=== PATIENT | male | born 1985 | race Two or more races ===

== ENCOUNTER 2024-11-25 12:14 | Inpatient (IN) | payer OTHER ==
[~2024-11-25] VITALS: Ht 154.9 cm; Wt 58.6 kg
[2024-11-25 13:34] LABS: PLATELET COUNT (AUTO) 428 K/uL (150-450); RED BLOOD CELL COUNT(AUTO) 4.93 MIL/uL (4.50-5.90); RED CELL DISTRIBUTION WIDTH 13.5 % (11.5-14.5); WHITE BLOOD COUNT (AUTO) 4.3 K/uL (4.5-11.0)
[2024-11-25 13:43] LABS: ALCOHOL, BLOOD (SERUM) < 3 mg/dL (0-10); CALCIUM, TOTAL 8.5 mg/dL (8.8-10.5); CREATININE 0.84 mg/dL (0.60-1.30); GLOMERULAR FILTR. RATE CALC > 60 mL/min (>60); GLUCOSE,RANDOM 88 mg/dL (70-110); SODIUM SERUM 136 mmol/L (136-145); UREA NITROGEN, BLOOD 13 mg/dL (7-18)
[2024-11-25 13:48] LABS: ASPARTATE AMINOTRANSFERASE 20 U/L (15-37); CREATINE KINASE, TOTAL ONLY 121 U/L (39-308); TOTAL PROTEIN, SERUM 7.4 g/dL (6.4-8.2)
[2024-11-25 13:49] LABS: TROPONIN I-HIGH SENSITIVITY 11 ng/L (<76)
[2024-11-25] MEDS: SODIUM CHLORIDE 0.9% 1,000 ML IV ONE (13:56)
[2024-11-25] MEDS ORDERED: ACETAMINOPHEN 325 MG TABLET PO PRN (17:45)
[2024-11-25] MEDS ORDERED: MAGNESIUM HYDROXIDE SUSPENSION 30 ML UDCUP PO PRN (17:45)
[2024-11-25] MEDS ORDERED: ZOLPIDEM TARTRATE 5 MG TABLET PO PRN (17:45)
[2024-11-25] MEDS ORDERED: BISACODYL 10 MG RECTAL RECTAL SUPPOSITORY PR PRN (17:45)
[2024-11-25] MEDS ORDERED: IPRATROPIUM BROMIDE 0.5 MG/2.5 ML NEB SOLUTION NEB PRN (17:45)
[2024-11-25] MEDS ORDERED: ONDANSETRON HCL 4 MG/2 ML VIAL IVP PRN (17:45)
[2024-11-25] MEDS ORDERED: ALBUTEROL SULFATE 2.5 MG/0.5 ML NEB SOLUTION NEB PRN (17:45)
[2024-11-25 17:46] VITALS: BP 106/74; PULSE 88; RESP 18; TEMP 97.5; O2SAT 100
[2024-11-25 19:46] VITALS: BP 96/61; PULSE 64; RESP 17; TEMP 97.7; O2SAT 99
[2024-11-25 23:26] VITALS: BP 96/63; PULSE 61; RESP 17; TEMP 97.5; O2SAT 99
[2024-11-26] MEDS: HEPARIN SODIUM,PORCINE 5,000 UNITS/ML VIAL SQ SCH (00:18)
[2024-11-26 03:30] VITALS: BP 92/72; PULSE 56; RESP 15; TEMP 98.1; O2SAT 100
[2024-11-26 06:49] LABS: PLATELET COUNT (AUTO) 397 K/uL (150-450); RED BLOOD CELL COUNT(AUTO) 4.71 MIL/uL (4.50-5.90); RED CELL DISTRIBUTION WIDTH 13.5 % (11.5-14.5); WHITE BLOOD COUNT (AUTO) 4.7 K/uL (4.5-11.0)
[2024-11-26 07:00] LABS: CALCIUM, TOTAL 8.1 mg/dL (8.8-10.5); CREATININE 0.61 mg/dL (0.60-1.30); GLOMERULAR FILTR. RATE CALC > 60 mL/min (>60); GLUCOSE,RANDOM 79 mg/dL (70-110); SODIUM SERUM 139 mmol/L (136-145); UREA NITROGEN, BLOOD 11 mg/dL (7-18)
[2024-11-26 07:19] LABS: APPEARANCE,URINE CLEAR (CLEAR); GLUCOSE, URINE (UA) NEGATIVE (NEGATIVE); LEUKOCYTE ESTERASE ,URINE NEGATIVE (NEGATIVE); NITRATE,URINE NEGATIVE (NEGATIVE); OCCULT BLOOD,URINE NEGATIVE (NEGATIVE); PH,URINE DRUG SCREEN 6.0 (5.0-8.0); SPECIFIC GRAVITIY, URINE 1.014 (1.003-1.030)
[2024-11-26 07:24] LABS: ALCOHOL, URINE DRUG SCREEN NEGATIVE (NEGATIVE); AMPHET/METH SCREEN,URINE POSITIVE (NEGATIVE); BARBITURATE SCREEN, URINE NEGATIVE (NEGATIVE); CANNABINOID SCREEN,URINE POSITIVE (NEGATIVE); COCAINE SCREEN,URINE NEGATIVE (NEGATIVE); METHADONE SCREEN, URINE NEGATIVE (NEGATIVE)
[2024-11-26 08:38] VITALS: BP 102/64; PULSE 58; RESP 18; TEMP 98.1; O2SAT 99
[2024-11-26] MEDS: PANTOPRAZOLE SODIUM 40 MG DR TABLET PO SCH (08:43)
[2024-11-26] MEDS: SODIUM CHLORIDE 0.9% 1,000 ML IV ONE (11:46)
[2024-11-26 11:55] VITALS: BP 95/60; PULSE 66; RESP 17; TEMP 98.2; O2SAT 99
[2024-11-26 14:36] VITALS: BP 104/80; PULSE 62; RESP 18; TEMP 97.5; O2SAT 100
[2024-11-26 20:40] VITALS: BP 101/68; PULSE 76; RESP 18; TEMP 98.2; O2SAT 97
[2024-11-27 05:15] VITALS: BP 98/71; PULSE 62; RESP 18; TEMP 97.5; O2SAT 98
[2024-11-27 07:39] VITALS: BP 101/72; PULSE 57; RESP 18; TEMP 97.1; O2SAT 98
[2024-11-27] MEDS ORDERED: ACET-2247 PO (10:34)
[2024-11-27] MEDS ORDERED: MAGN-169 PO (10:35)
== END 2024-11-27 11:35 | DRG 948 ==
LOC: EMS 12:17 → EDH 16:51 → 5S 18:15 → 6S 11-26 13:25 → 6N 11-26 13:55
PROVIDERS: ADMIT Hospitalist; ATTEND Hospitalist
DX: R53.1 Weakness (principal); F15.10 Other stimulant abuse, uncomplicated
CPT/HCPCS: 71045; 71250; 72192; 74150; 80048; 80076; 80307; 81003; 82550; 83735; 83880; 84484; 85025; 93005; 96360; 99285; G0480; J1644; J7030; 36415-L1; 36415-TC

== ENCOUNTER 2024-11-27 19:55 | Inpatient (IN) | payer OTHER ==
[~2024-11-27] VITALS: Ht 160 cm; Wt 63.6 kg
[~2024-11-27 19:55] MED LIST: ACET-2247 PO; MAGN-169 PO
[2024-11-27] MEDS ORDERED: MAGNESIUM HYDROXIDE SUSPENSION 30 ML UDCUP PO PRN (20:30)
[2024-11-27] MEDS ORDERED: ACETAMINOPHEN 325 MG TABLET PO PRN (20:30)
[2024-11-27] MEDS ORDERED: ONDANSETRON HCL 4 MG/2 ML VIAL IVP PRN (20:30)
[2024-11-27] MEDS ORDERED: ZOLPIDEM TARTRATE 5 MG TABLET PO PRN (20:30)
[2024-11-27 20:39] LABS: PH,URINE DRUG SCREEN 6.5 (5.0-8.0)
[2024-11-27 20:40] LABS: APPEARANCE,URINE CLEAR (CLEAR); GLUCOSE, URINE (UA) NEGATIVE (NEGATIVE); LEUKOCYTE ESTERASE ,URINE NEGATIVE (NEGATIVE); NITRATE,URINE NEGATIVE (NEGATIVE); OCCULT BLOOD,URINE NEGATIVE (NEGATIVE); SPECIFIC GRAVITIY, URINE 1.022 (1.003-1.030)
[2024-11-27 20:45] LABS: ALCOHOL, URINE DRUG SCREEN NEGATIVE (NEGATIVE); AMPHET/METH SCREEN,URINE NEGATIVE (NEGATIVE); BARBITURATE SCREEN, URINE NEGATIVE (NEGATIVE); CANNABINOID SCREEN,URINE POSITIVE (NEGATIVE); COCAINE SCREEN,URINE NEGATIVE (NEGATIVE); METHADONE SCREEN, URINE NEGATIVE (NEGATIVE)
[2024-11-27 21:14] VITALS: BP 104/76; PULSE 65; RESP 18; TEMP 97.7; O2SAT 100
[2024-11-27 21:18] LABS: PLATELET COUNT (AUTO) 394 K/uL (150-450); RED BLOOD CELL COUNT(AUTO) 4.45 MIL/uL (4.50-5.90); RED CELL DISTRIBUTION WIDTH 13.7 % (11.5-14.5); WHITE BLOOD COUNT (AUTO) 5.2 K/uL (4.5-11.0)
[2024-11-27 21:25] LABS: CALCIUM, TOTAL 8.2 mg/dL (8.8-10.5); CREATININE 0.91 mg/dL (0.60-1.30); GLOMERULAR FILTR. RATE CALC > 60 mL/min (>60); GLUCOSE,RANDOM 103 mg/dL (70-110); SODIUM SERUM 140 mmol/L (136-145); UREA NITROGEN, BLOOD 13 mg/dL (7-18)
[2024-11-28 04:50] VITALS: BP 108/80; PULSE 62; RESP 18; TEMP 98.1; O2SAT 100
[2024-11-28 09:22] VITALS: BP 98/72; PULSE 63; RESP 18; TEMP 97.7; O2SAT 97
[2024-11-28 20:30] VITALS: BP 93/61; PULSE 89; RESP 18; TEMP 98.6; O2SAT 98
[2024-11-29 05:37] VITALS: BP 100/60; PULSE 65; RESP 18; TEMP 98.1; O2SAT 100
[2024-11-29 09:55] VITALS: BP 115/73; PULSE 75; RESP 18; TEMP 98.4; O2SAT 98
== END 2024-11-29 10:55 | DRG 882 ==
LOC: EMS 19:55 → EDH 20:28 → 6S 20:59
PROVIDERS: ADMIT Internal Medicine; ATTEND Internal Medicine
DX: F43.29 Adjustment disorder with other symptoms (principal); F15.10 Other stimulant abuse, uncomplicated; F29 Unspecified psychosis not due to a substance or known physiological condition; F32.A Depression, unspecified; F12.10 Cannabis abuse, uncomplicated
CPT/HCPCS: 80048; 80307; 81003; 85025; 99285; G0480